=== PATIENT | female | born 1965 | race African-American/Black ===

== ENCOUNTER → 2016-06-02 | Outpatient (CLI) | payer MEDICARE, BC ==
[2015-12-16 07:15] VITALS: BP 144/88
--- NOTE | 2016-06-02 11:12 | KCIC ---
PROCEDURE Bilateral digital screening mammogram. HISTORY 51-year-old female presents for screening mammography. TECHNIQUE Full field digital craniocaudal and mediolateral oblique views of both breasts are obtained. Computer-aided detection is applied. COMPARISON 05/30/2015 and 05/31/2014 FINDINGS Breast parenchymal composition: Level B - Scattered fibroglandular densities. There is no suspicious mass, calcification or architectural distortion within either breast. IMPRESSION BI-RADS Category 2: Benign findings. Annual mammography is recommended. Mammography is not 100% sensitive in detecting breast cancer. Therefore, a self breast exam and a clinical breast exam are very important. A negative mammogram does not negate a clinically suspicious finding and should not result in a delay in biopsying a clinically suspicious abnormality. This patient's information has been entered into a reminder system for the patient to be notified with the results of this examination and a target date for her next mammograms. Electronically signed by: Prisca Mary (Jun 02, 2016 11:10:00)
== END | disposition home or self-care (01) ==
LOC: KCIC MAMMO 10:27
PROVIDERS: ATTEND Transplant Surgery
DX: Z12.31 Encounter for screening mammogram for malignant neoplasm of breast (principal)
CPT/HCPCS: G0202; 77067